=== PATIENT | male | born 1975 | race Caucasian/White ===

== ENCOUNTER 2021-11-19 15:13 | Emergency (ER) | payer OTHER ==
[~2021-11-19] VITALS: Ht 175.3 cm; Wt 100.2 kg
[2021-11-19 15:29] VITALS: BP 172/121
[2021-11-19] MEDS ORDERED: KETOROLAC 30 MG/ML VIAL IM ONE (16:05)
[2021-11-19] MEDS ORDERED: HYDROcodone/APAP 5/325 MG 1 TAB TAB PO ONE (16:05)
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
[2021-11-19] MEDS ORDERED: CYCL-711 PO (17:11)
[2021-11-19] MEDS ORDERED: IBUP-2213 PO (17:11)
[2021-11-19] MEDS ORDERED: LID5T TP (17:11)
--- NOTE | 2021-11-19 17:58 | NUR ---
REASSESSED PATIENT BP, 183/113. EFFIE HEMPHILL MADE AWARE, NO NEW ORDERS GIVEN. EFFIE HEMPHILL STATED PATIENT OKAY TO BE DISCHARGED.
[2021-11-19 17:59] VITALS: BP 183/113
--- NOTE | 2021-11-19 17:59 | NUR ---
Patient discharged with v/s stable. Written and verbal after care instructions ABOUT MUSCLE PAIN, ACUTE BACK PAIN AND TAILBONE INJURY given and explained. Patient alert, oriented and verbalized understanding of instructions. Ambulatory with steady gait. All questions addressed prior to discharge. ID band removed. Patient advised to follow up with PMD. Rx of FLEXERIL, IBUPROFEN AND LIDODERM PATCH given. Patient educated on indication of medication including possible reaction and side effects. Opportunity to ask questions provided and answered.
== END 2021-11-19 17:59 | disposition home or self-care (01) ==
LOC: MED 15:13
DX: S39.012A Strain of muscle, fascia and tendon of lower back, initial encounter (principal); M79.18 Myalgia, other site; R03.0 Elevated blood-pressure reading, without diagnosis of hypertension; Z79.899 Other long term (current) drug therapy; Z79.1 Long term (current) use of non-steroidal anti-inflammatories (NSAID); V89.2XXA Person injured in unspecified motor-vehicle accident, traffic, initial encounter; Y93.89 Activity, other specified; Y92.410 Unspecified street and highway as the place of occurrence of the external cause; Y99.8 Other external cause status
CPT/HCPCS: 96372; 99283; J1885